=== PATIENT | female | born 1955 | race Caucasian/White ===

== ENCOUNTER 2019-06-14 12:28 | Emergency (ER) | payer MEDICAID ==
[~2019-06-14] VITALS: Ht 170.2 cm; Wt 81.5 kg
[2019-06-14 12:40] VITALS: BP 117/87
--- NOTE | 2019-06-14 12:48 | NUR ---
ERENDIRA ARROYO AT BS NOW.
[2019-06-14] MEDS ORDERED: KETOROLAC 30 MG/1 ML ONE (12:53)
[2019-06-14] MEDS ORDERED: KETOROLAC 30 MG/1 ML IM ONE (13:00)
[2019-06-14] MEDS ORDERED: HYDROcodone/APAP 5/325 TABLET PO ONE (13:00)
--- NOTE | 2019-06-14 13:01 | NUR ---
PT MEDICATED WITH TORADOL FIRST PER ER PA. C/O PAIN 04/18 TO R KNEE AT THIS TIME. PT TAKES PAIN MEDS AT HOME FOR CHRONIC BACK PAIN & FIBROMYALGIA.
--- NOTE | 2019-06-14 13:12 | NUR ---
PT TO XR VIA NIDIA.
[2019-06-14 13:23] LABS: BASOPHILS # (AUTO) 0.04 x10^3/uL (0-0.1); BASOPHILS % (AUTO) 0 % (0-1); EOSINOPHILS # (AUTO) 0.24 x10^3/uL (0-0.4); EOSINOPHILS % (AUTO) 2 % (1-7); LYMPHOCYTES # (AUTO) 3.86 x10^3/uL (1-3.4); LYMPHOCYTES % (AUTO) 36 % (22-44); MD NO; MEAN CORPUSCULAR HEMOGLOBIN 29.6 pg (27.0-34.8); MEAN CORPUSCULAR HGB CONC 32.5 g/dL (32.4-35.8); MEAN CORPUSCULAR VOLUME 91.2 fL (80-100); MEAN PLATELET VOLUME 7.4 fL (7.4-10.4); MONOCYTES # (AUTO) 0.43 x10^3/uL (0.2-0.8); MONOCYTES % (AUTO) 4 % (2-9); NEUTROPHILS # (AUTO) 6.12 x10^3/uL (1.8-6.8); NEUTROPHILS % (AUTO) 57 % (42-75); PLATELET COUNT 312 x10^3/uL (130-400); RED CELL DISTRIBUTION WIDTH 15.4 % (9.6-15.2)
[2019-06-14 13:31] LABS: ALBUMIN 3.2 g/dL (3.4-5.0); ANION GAP 5 mmol/L (5-15); CALCIUM 8.7 mg/dL (8.5-10.1); CHLORIDE 109 mmol/L (98-107); CREATININE 0.71 mg/dL (0.55-1.02)
--- NOTE | 2019-06-14 13:51 | NUR ---
YARA LÓPEZ AT FOR R KNEE IMMOBILIZER APPLICATION AND CRUTCH TEACHING. Addendum: 06/14/19 at 1351 by HBENSON PT STILL C/O PAIN 02/16 TO R KNEE. ERP NOTIFIED. PT STATES SHE CURRENTLY TAKES BUPRENORPHINE FOR BACK/FIBROMYALGIA PAIN.
== END 2019-06-14 14:05 | disposition home or self-care (01) ==
LOC: ED 13:59
DX: M25.562 Pain in left knee (principal); M19.90 Unspecified osteoarthritis, unspecified site; Z88.0 Allergy status to penicillin
CPT/HCPCS: 36415; 73564; 80048; 82040; 84550; 85025; 96372; 99284; J1885

== ENCOUNTER 2019-06-20 12:52 | Emergency (ER) | payer MEDICAID ==
[~2019-06-20] VITALS: Ht 170.2 cm; Wt 84.5 kg
[2019-06-20 13:18] VITALS: BP 124/81
[2019-06-20] MEDS ORDERED: DEXAMETHASONE 4 MG TABLET ONE (14:29)
[2019-06-20] MEDS ORDERED: DEXAMETHASONE 4 MG TABLET PO ONE (14:30)
== END 2019-06-20 15:17 | disposition home or self-care (01) ==
LOC: ED 14:46
DX: B34.9 Viral infection, unspecified (principal); F17.200 Nicotine dependence, unspecified, uncomplicated; F12.10 Cannabis abuse, uncomplicated; Z72.89 Other problems related to lifestyle
CPT/HCPCS: 71046; 87081; 87880; 99284

== ENCOUNTER 2019-06-30 08:14 | Observation (INO) | payer MEDICAID ==
[~2019-06-30] VITALS: Ht 170.2 cm; Wt 80.0 kg
--- NOTE | 2019-06-30 08:16 | NUR ---
PATIENT BROUGHT IN BY JACKIE WITH CHIEF COMPLAINT OF WORSENING SOB STARTING THIS MORNING. PATIENT DIAGNOSED WITH VIRAL INFECTION 4 DAYS AGO. THE PATIENT IS ALRT, ORIENTED, WAMR AND DRY.
[2019-06-30] MEDS ORDERED: SODIUM CHLORIDE FLUSH 10ML SYR IVF ONE (08:30)
[2019-06-30] MEDS ORDERED: methylPREDNISolone SOD SUCC 125 MG/2 ML IV ONE (08:30)
[2019-06-30] MEDS ORDERED: methylPREDNISolone SOD SUCC 125 MG/2 ML ONE (08:38)
[2019-06-30] MEDS ORDERED: ALBUTEROL SULFATE 2.5 MG/3 ML ONE (08:38)
--- NOTE | 2019-06-30 08:40 | NUR ---
RT AT BEDSIDE
[2019-06-30] MEDS: ALBUTEROL SULFATE 2.5 MG/3 ML NPPB SCH ×2 (08:43→10:49)
[2019-06-30 08:53] LABS: BASOPHILS # (AUTO) 0.03 x10^3/uL (0-0.1); BASOPHILS % (AUTO) 0 % (0-1); EOSINOPHILS # (AUTO) 0.23 x10^3/uL (0-0.4); EOSINOPHILS % (AUTO) 2 % (1-7); LYMPHOCYTES # (AUTO) 3.23 x10^3/uL (1-3.4); LYMPHOCYTES % (AUTO) 32 % (22-44); MD NO; MEAN CORPUSCULAR HEMOGLOBIN 28.7 pg (27.0-34.8); MEAN CORPUSCULAR HGB CONC 32.1 g/dL (32.4-35.8); MEAN CORPUSCULAR VOLUME 89.4 fL (80-100); MEAN PLATELET VOLUME 7.1 fL (7.4-10.4); MONOCYTES # (AUTO) 0.44 x10^3/uL (0.2-0.8); MONOCYTES % (AUTO) 4 % (2-9); NEUTROPHILS % (AUTO) 61 % (42-75); PLATELET COUNT 355 x10^3/uL (130-400); RED BLOOD COUNT 5.01 x10^6/uL (3.82-5.3); RED CELL DISTRIBUTION WIDTH 15.1 % (9.6-15.2)
[2019-06-30 08:59] LABS: ANION GAP 6 mmol/L (5-15); CALCIUM 8.7 mg/dL (8.5-10.1); CHLORIDE 111 mmol/L (98-107); CREATININE 0.73 mg/dL (0.55-1.02)
[2019-06-30 09:03] LABS: TROPONIN I < 0.015 ng/mL (0.000-0.045)
--- NOTE | 2019-06-30 10:06 | NUR ---
JAMI ANTONIO AT BEDSIDE TO DISCUSS POC.
--- NOTE | 2019-06-30 10:16 | NUR ---
ASSISTED PATIENT WITH AMBULATION TO BATHROOM.
[2019-06-30] MEDS ORDERED: ALBU0.63 NEB (10:35)
--- NOTE | 2019-06-30 10:50 | NUR ---
MEAL TRAY PROVIDED, AWARE OF ADMIT.
[2019-06-30] MEDS ORDERED: GUAIFENESIN/DM 200-20MG, 10ML UDC PO PRN (11:30)
[2019-06-30] MEDS ORDERED: IBUPROFEN 600 MG TABLET PO PRN (11:30)
[2019-06-30] MEDS ORDERED: ACETAMINOPHEN 325 MG TABLET PO PRN (11:30)
[2019-06-30] MEDS ORDERED: hydrALAzine 20 MG/ML, 1ML IVPush PRN (11:30)
[2019-06-30] MEDS ORDERED: ONDANSETRON 2MG/ML, 2ML IVPush PRN (11:30)
--- NOTE | 2019-06-30 11:47 | NUR ---
REPORT CALLED TO ERIKA CAMPBELL. PT AWARE OF TRANSFER.
[2019-06-30] MEDS ORDERED: AZITHROMYCIN 500 MG TABLET PO ONE (12:00)
[2019-06-30] MEDS ORDERED: ALBUTEROL/IPRATROPIUM 2.5MG/0.5MG, 3 ML NPPB PRN (12:30)
[2019-06-30] MEDS: ENOXAPARIN 40 MG/0.4 ML SQ SCH (12:35)
[2019-06-30 12:45] VITALS: BP 92/61
[2019-06-30] MEDS ORDERED: FLU VACC QS2019-20 36MOS UP/PF 0.5 ML IM ONE (13:30)
[2019-06-30 15:00] VITALS: BP 94/57
[2019-06-30] MEDS: ALBUTEROL/IPRATROPIUM 2.5MG/0.5MG, 3 ML NPPB SCH ×2 (16:11→19:40)
[2019-06-30] MEDS ORDERED: BUPR1PAT20 MT (17:49)
[2019-06-30] MEDS ORDERED: BUPR1TAB45 MT (17:49)
[2019-06-30] MEDS ORDERED: BUPR8TAB PO (18:03)
[2019-06-30 20:46] VITALS: BP 108/67
[2019-06-30] MEDS ORDERED: TRAZ-137 PO (21:01)
[2019-06-30] MEDS ORDERED: BUPRENORPHINE/NALOXONE 8-2MG SL SCH (23:00)
[2019-06-30] MEDS ORDERED: TRAZODONE 100MG TABLET PO ONE (23:00)
[2019-07-01] MEDS: BUPRENORPHINE 8 MG HOMEMEDPO SCH ×2 (00:23→08:03)
[2019-07-01 00:28] VITALS: BP 100/66
[2019-07-01 05:13] LABS: ANION GAP 6 mmol/L (5-15); CALCIUM 8.5 mg/dL (8.5-10.1); CHLORIDE 111 mmol/L (98-107); CREATININE 0.64 mg/dL (0.55-1.02)
[2019-07-01 05:20] LABS: MEAN CORPUSCULAR HEMOGLOBIN 29.3 pg (27.0-34.8); MEAN CORPUSCULAR HGB CONC 32.2 g/dL (32.4-35.8); MEAN PLATELET VOLUME 7.7 fL (7.4-10.4); PLATELET COUNT 335 x10^3/uL (130-400); RED BLOOD COUNT 4.39 x10^6/uL (3.82-5.3)
[2019-07-01 05:59] LABS: BASOPHILS # (AUTO) 0.03 x10^3/uL (0-0.1); BASOPHILS % (AUTO) 0 % (0-1); EOSINOPHILS # (AUTO) 0.28 x10^3/uL (0-0.4); EOSINOPHILS % (AUTO) 1 % (1-7); LYMPHOCYTES # (AUTO) 3.16 x10^3/uL (1-3.4); LYMPHOCYTES % (AUTO) 14 % (22-44); MD SCAN; MONOCYTES % (AUTO) 3 % (2-9); NEUTROPHILS # (AUTO) 19.31 x10^3/uL (1.8-6.8); NEUTROPHILS % (AUTO) 83 % (42-75)
[2019-07-01] MEDS: ALBUTEROL/IPRATROPIUM 2.5MG/0.5MG, 3 ML NPPB SCH ×3 (07:00→15:00)
[2019-07-01 07:10] VITALS: BP 100/67
[2019-07-01] MEDS ORDERED: SENNA/DOCUSATE TABLET PO SCH (09:00)
[2019-07-01] MEDS ORDERED: ACYC-114 PO (09:47)
[2019-07-01] MEDS ORDERED: TERB250T14 PO (09:52)
[2019-07-01] MEDS ORDERED: ATOR-2 PO (09:54)
[2019-07-01] MEDS ORDERED: PARO40TA3 PO (09:56)
[2019-07-01] MEDS ORDERED: PARO10TA3 PO (09:56)
[2019-07-01] MEDS ORDERED: TOPI50TA8 PO (10:00)
[2019-07-01] MEDS ORDERED: ARIP5TAB56 PO (10:02)
[2019-07-01] MEDS ORDERED: RANI150C PO (10:03)
[2019-07-01] MEDS ORDERED: CHOL10003 PO (10:04)
[2019-07-01] MEDS ORDERED: GABA600T7 PO (10:06)
[2019-07-01] MEDS ORDERED: SUMA50TA4 PO (10:10)
[2019-07-01] MEDS ORDERED: TIOT18CA INH (10:11)
[2019-07-01 12:26] VITALS: BP 112/71
[2019-07-01] MEDS: ENOXAPARIN 40 MG/0.4 ML SQ SCH (12:47)
[2019-07-01] MEDS ORDERED: SUMATRIPTAN 50 MG TABLET PO PRN (14:30)
[2019-07-01] MEDS ORDERED: TERBINAFINE 250MG TABLET PO PRN (14:30)
[2019-07-01] MEDS ORDERED: METH4TAB PO (14:40)
[2019-07-01] MEDS ORDERED: GABAPENTIN 300 MG CAPSULE PO SCH (16:00)
[2019-07-01] MEDS ORDERED: TOPIRAMATE 25 MG TABLET PO SCH (21:00)
[2019-07-01] MEDS ORDERED: ACYCLOVIR 400 MG TABLET PO SCH (21:00)
[2019-07-01] MEDS ORDERED: ATORVASTATIN 80 MG TABLET PO SCH (21:00)
[2019-07-02] MEDS ORDERED: ARIPIPRAZOLE 5 MG TABLET PO SCH (09:00)
[2019-07-02] MEDS ORDERED: CHOLECALCIFEROL 1,000 UNIT TABLET PO SCH (09:00)
[2019-07-02] MEDS ORDERED: PAROXETINE 10 MG TABLET PO SCH (09:00)
== END 2019-07-01 16:32 | disposition home or self-care (01) ==
LOC: ED 08:53 → INTOOBSV 10:17 → EDIP 10:17 → 3N 12:00 → DCLOUNGE 07-01 16:18
PROVIDERS: ADMIT Hospitalist; ATTEND Hospitalist
DX: J44.1 Chronic obstructive pulmonary disease with (acute) exacerbation (principal); J06.9 Acute upper respiratory infection, unspecified; M19.90 Unspecified osteoarthritis, unspecified site; M79.7 Fibromyalgia; F17.210 Nicotine dependence, cigarettes, uncomplicated; Z79.899 Other long term (current) drug therapy; F10.10 Alcohol abuse, uncomplicated; Z23 Encounter for immunization
CPT/HCPCS: 36415; 80048; 85025; 90471; 94640; 96372; 96374; 99284; G0378; J1650; J7512; J7620; 90686; J7613; J2930